=== PATIENT | female | born 1995 | race Caucasian/White ===

== ENCOUNTER 2020-07-07 22:13 | Inpatient (IN) | payer BC ==
[~2020-07-07] VITALS: Ht 160 cm; Wt 96.4 kg
--- NOTE | 2020-07-07 22:15 | NUR ---
Pt arrived on unit via wheelchair escorted by boyfriend and with complaints of contractions since 4pm wosening to every 5 minutes over the last couple hours. Pt denies leaking of fluid or vaginal bleeding and reports normal movement. EFM and toco monitors started. Vital signs WNL. SVE by this RN -/2. Plan of care for labor assessment reviewed.
[2020-07-07 22:20] VITALS: BP 110/65; PULSE 76
[2020-07-07] MEDS ORDERED: PRENATAL (22:26)
[2020-07-07] MEDS ORDERED: NATURAL IRON65 MG (22:26)
--- NOTE | 2020-07-07 23:30 | NUR ---
Spoke with Dr. Garrido for an update on pt's status with FHR tracing, ctx pattern and SVE reviewed. Orders for labor admission received. Plan of care reviewed with pt and boyfriend at the bedside. Both verbalized an understanding, agreed with the plan and states no questions or concerns at this time.
[2020-07-08] VITALS (45 sets, daily range): BP systolic 83–146; BP diastolic 52–85; PULSE 64–106; TEMP 97.4–98.9
--- NOTE | 2020-07-08 00:20 | NUR ---
Pt off EFM to ambulate.
[2020-07-08 00:44] LABS: BASO % 0.1 % (0.0-2.0); EOS % 0.3 % (0-4.0); GRAN # 9.9 (1.4-6.5); GRAN % 73.5 % (42.2-75.2); HEMATOCRIT 37.4 % (37.0-47.0); HEMOGLOBIN 12.8 g/dl (12.5-16.0); LYMPH # 2.5 (1.2-3.4); LYMPH % 18.6 % (20.0-51.0); MEAN CELL VOLUME 94 fl (80.0-100.0); MEAN CORPUSCULAR HEMOGLOBIN 32 pg (27.0-31.0); MEAN CORPUSCULAR HGB CONC 34 g/dl (33.0-37.0); MEAN PLATELET VOLUME 8.4 fl (7.4-10.4); MONO # 0.9 (0.1-0.6); MONO % 6.9 % (1.7-9.3); PLATELET COUNT 228 K/mm3 (130-400); RED BLOOD COUNT 3.98 M/mm3 (4.10-5.30); REDCELL DISTRIBUTION WIDTH-CV 12.7 % (11.5-14.5)
[2020-07-08 00:54] LABS: TRICYCLIC ANTIDEPRESS URINE NEGATIVE
--- NOTE | 2020-07-08 02:33 | NUR ---
0233- ELLIS Maria at the bedside for epidural placement. Time out done. Pt sitting on the edge of the bed. 0236- SPO2 monitor started. EFM tracing maternal HR as correlates with SPO2 monitor. 0245- Test dose done per Candace. See anesthesia records for details. 0251- Assisted pt back to supine with left wedge position.
--- NOTE | 2020-07-08 04:00 | NUR ---
Difficult tracing contractions, toco adjusted.
--- NOTE | 2020-07-08 05:15 | NUR ---
Difficult tracing contractions, toco adjusted.
--- NOTE | 2020-07-08 05:45 | NUR ---
Difficult tracing contractions, toco adjusted.
--- NOTE | 2020-07-08 07:27 | NUR ---
0630 EPHEDRINE 10 MG IV GIVEN FOR BP OF 83/54
--- NOTE | 2020-07-08 13:09 | NUR ---
1150 PATIENT VERY UNCOMFORTBALE.SVE /0. DR CALLED TO COME FOR DELIVERY. 1200 DR AYALA AT BEDSIDE WILL PUSH WITH EACH CONTRACTION. 1208 BABY BOY BORN VIA BY DR AYALA. CORD CLAMPED AND CUT AND TO MOMS CHEST SKIN TO SKIN. 1210 PLACENTA DELIVERED. PITOCIN STARTED AT 333/HR PER PTOTOCOL. FUNDUS FIRM AND BLEEDING MODERATE. 2 SMALL LABIAL LACERATIONS REPAIRED BY AT THIS TIME
[2020-07-09 00:34] VITALS: BP 96/51; PULSE 71; TEMP 98.2
[2020-07-09 04:14] VITALS: BP 94/53; PULSE 74; TEMP 98.1
[2020-07-09] MEDS ORDERED: MOTRIN 800800 MG/TAB PO (07:27)
[2020-07-09] MEDS ORDERED: PERCOCET 325 MG1 TA2 PO (07:28)
[2020-07-09 07:55] VITALS: BP 93/56; PULSE 99; TEMP 98.2
--- NOTE | 2020-07-09 10:03 | NUR ---
Initial visit; Parents thanked for offering congratulations for the of their son. Chief Inspector thanked family for choosing [place] and offered God's blessings to their family.
[2020-07-09 11:10] VITALS: BP 116/59; PULSE 74; TEMP 98
--- NOTE | 2020-07-09 11:54 | NUR ---
LORRIE responded to consult. The patient admitted to marijuana use during . Her UDS came back negative for cannabinoids. LORRIE met with the patient and the father of baby, Bayron Boyce. The patient lives in [place] with Bayron. She states that Bayron's family lives here in town. She states that she has cousins, aunts, and uncles that live here. She states that she works at [employer] and worked there throughtout . Bayron works at [employer]. The patient reports that she has a carseat, applied for WIC, and all supplies for baby. LORRIE then addresed the patient's marijuana use. The patient reports that she last used two weeks ago. She states that she used before this as well to help with nausea and to be able to eat during . She states that she would take edibles. She denies any other drug use. The patient reports that she does not have any concerns with smoking or taking edibles when she returns home with baby. The patient and Bayron did not have any questions or concerns for LORRIE about bringing baby home. LORRIE updated OB staff on the above information. The baby's cord blood is pending. LORRIE made a CPS report. Intake ID#[id number].
[2020-07-09 17:17] VITALS: BP 110/62; PULSE 75; TEMP 98
[2020-07-09 19:19] VITALS: BP 110/64; PULSE 74; TEMP 98.4
[2020-07-10 07:55] VITALS: BP 108/62; PULSE 78; TEMP 98.1
== END 2020-07-10 10:25 | disposition home or self-care (01) | DRG 807 ==
LOC: LDRO 22:13 → LDR 22:50 → LDRO 23:38 → LDR 23:39 → OB 23:39
PROVIDERS: Student in an Organized Health Care Education/Training Program; ADMIT Obstetrics & Gynecology
PROC: 10E0XZZ Delivery of Products of Conception, External Approach (ICD-10-PCS; principal; 2020-07-08)
PROC: 10907ZC Drainage of Amniotic Fluid, Therapeutic from Products of Conception, Via Natural or Artificial Opening (ICD-10-PCS; 2020-07-08)
PROC: 0UQMXZZ Repair Vulva, External Approach (ICD-10-PCS; 2020-07-08)
DX: O48.0 Post-term pregnancy (principal); Z37.0 Single live birth; O99.824 Streptococcus B carrier state complicating childbirth; O70.0 First degree perineal laceration during delivery; Z3A.40 40 weeks gestation of pregnancy
CPT/HCPCS: J2540; J2590; J7120

== ENCOUNTER 2022-02-24 11:16 | Outpatient (CLI) | payer OTHER ==
[~2022-02-24] VITALS: Ht 157.5 cm; Wt 102.7 kg
[~2022-02-24 11:16] MED LIST: MOTRIN 800800 MG/TAB PO; NATURAL IRON65 MG; PERCOCET 325 MG1 TA2 PO; PRENATAL
--- NOTE | 2022-02-24 11:25 | NUR ---
pt ambulatory onto unit with support person to LR2. pt changed into clean gown. FHR monitor/toco applied. vital signs wnl. Pt denies any vaginal bleeding, decreaesd movement or regular contractions. SVE /-3. Amniotests negative x2.
[2022-02-24] MEDS ORDERED: ASPIRIN 81M81 MG/TA2 PO (11:36)
[2022-02-24] MEDS ORDERED: PRILOSEC10 MG PO (11:36)
[2022-02-24 12:00] VITALS: BP 117/76; PULSE 93; TEMP 97.5
== END 2022-02-24 12:10 | disposition home or self-care (01) ==
LOC: LDRO 11:16
DX: Z34.93 Encounter for supervision of normal pregnancy, unspecified, third trimester (principal); Z3A.36 36 weeks gestation of pregnancy

== ENCOUNTER 2022-03-17 14:53 | Inpatient (IN) | payer OTHER ==
[2022-03-17] VITALS (30 sets, daily range): BP systolic 107–145; BP diastolic 55–85; PULSE 74–115; TEMP 98.1–98.6
[~2022-03-17] VITALS: Ht 157.5 cm; Wt 104.5 kg
[~2022-03-17 14:53] MED LIST changes: +ASPIRIN 81M81 MG/TA2 PO; +PRILOSEC10 MG PO
[2022-03-17 15:38] LABS: BASO % 0.1 % (0.0-2.0); EOS % 0.2 % (0.0-4.0); GRAN # 12.2 K/mm3 (1.4-6.5); GRAN % 80.1 % (42.2-75.2); HEMATOCRIT 39.2 % (37.0-47.0); HEMOGLOBIN 13.5 g/dl (12.5-16.0); LYMPH % 12.9 % (20.0-51.0); MEAN CELL VOLUME 94 fl (80.0-100.0); MEAN CORPUSCULAR HEMOGLOBIN 33 pg (27-31); MEAN CORPUSCULAR HGB CONC 34 g/dl (33.0-37.0); MEAN PLATELET VOLUME 8.9 fl (7.4-10.4); MONO % 6.4 % (1.7-9.3); PLATELET COUNT 246 K/mm3 (130-400); RED BLOOD COUNT 4.16 M/mm3 (4.10-5.30); REDCELL DISTRIBUTION WIDTH-CV 12.6 % (11.5-14.5)
--- NOTE | 2022-03-17 16:15 | NUR ---
1558- Pt up to void and provide urine sample. 1603- Pt back to bed, sitting on side of bed for epidural placement. EFM and TOCO plugged in but not tracing well due to maternal positioned. Adjusted by this RN. O2 sat monitor on and tracing maternal HR. ELLIS Brooks at bedside. 1608- Single shot by DIVISION SUPERINTENDENT, see anesthesia record. 1613- O2 sat monitor off. Pt assisted to semi-fowlers with WL. EFM and TOCO adjusted until tracing. Pt tolerated well. This RN remains at bedside monitoring VS for 20mins.
[2022-03-17 16:48] LABS: TRICYCLIC ANTIDEPRESS URINE NEGATIVE
--- NOTE | 2022-03-17 17:15 | NUR ---
1653- Pt repositioned for vargas replacement. SVE /-2. Pt assisted to RL with LLS. FHR not tracing well, adjusted multiple times and additional strap placed. 1710- L leg taken out of stirrup, FHR found and tracing well. UC adjusted, no contractions noted per monitor.
--- NOTE | 2022-03-17 17:23 | NUR ---
1453 Patient here for compliants of contractions since Dr appointment yesterday. Contractions getting stronger. EFM on contractions every 3 min, palpate strong. Fht 125 Baby very active. SVE /-1. DR Painter updated on all above information. Orders to admit for labor. Assessment completed. Iv started in left hand. 3449 report given to Patricia Chen to assume care at this time.
--- NOTE | 2022-03-17 18:55 | NUR ---
1854-DR MORFIN REVIEWS STRIP. TO BEDSIDE. SVE BY DR MORFIN . STATES THERE WAS GOOD CHANGE, BUT TO START PITOCIN TO GET THINGS GOING FASTER. PT IS AGREEABLE. 1899- PT POSITIONED IN RIGHT TILT WITH PEANUT BALL. MONITORS ADJUSTED. PT HAS EPISODE OF VOMITTING, REQUESTS SOMETHING FOR NAUSEA. 1914- ZOFRAN GIVEN FOR NAUSEA. PITOCIN STARTED AT 2MUNITS ORDERED. SECOND DOSE OF PEN G INFUSING ORDERED. PT REPORTS FEELING BETTER AT THIS TIME. 1934- PT TURNED TO LEFT TILT WITH PEANUT BALL, MONITORS ADJUSTED. 1944- PITOCIN INCREASED TO 4MUNITS ORDERED. PT REPORTS SOME MILD RECTAL PRESSURE. ENCOURAGED TO USE HER EPIDURAL BUTTON IF NEEDED FOR PAIN. MONITORS ADJUSTED. 2004- DR MORFIN AT BEDSIDE, SVE BY DR MORFIN ANTERIOR LIP/100/+1. PT POSITIONED IN RIGHT TILT WITH PEANUT BALL, MONITORS ADJUSTED. DR MORFIN STATES SHE WILL BE BACK IN 30 MINUTES TO PUSH. 2024- DR MORFIN AT BEDSIDE. SVE BY DR MORFIN COMPLETE AND +2. 2029- GARZA CATHETER REMOVED BY RN. PT POSITIONED IN FOOTPLATES BY DR MORFIN. PT BEGINS COACHED PUSHING WITH DR MORFIN. MONITORS ADJUSTED. 2033- DR MORFIN COACHES PUSHING AND MASSAGES PERINEUM DURING CONTRACTIONS. SPONTANEOUS VAGINAL DELIVERY OF VIABLE FEMALE WITH NUCHAL CORD X1 WHICH IS REDUCED BY DR MORFIN AFTER SHE STATES "TIGHT NUCHAL X1." BABY TO MOTHER'S ABDOMEN AND CARE OF NURSERY STAFF. TERMINAL MECONIUM NOTED AT DELIVERY. [id number]- DR MORFIN APPLYING TRACTION TO CORD FOR DELIVERY OF PLACENTA. 2036- SPONTANEOUS DELIVERY OF PLACENTA, EXAMINED BY DR MORFIN. REPAIR OF RIGHT LABIAL LACERATION IN PROGRESS. 2039- REPAIR COMPLETE. COUNTS CORRECT. PERICARE PROVIDED. ICEPACK TO PERINEUM. FEET DOWN FROM FOOTPLATES AND RECOVERY STARTED.
--- NOTE | 2022-03-17 23:00 | NUR ---
2300- PT ABLE TO ELEVATE LEGS OFF BED. IV TO SALINE LOCK. PT ASSISTED TO SIT ON EDGE OF BED. SHE DENIES FEELING LIGHT HEADED OR DIZZY. EPIDURAL CATHETER REMOVED CHARTED. PT ASSISTED TO AMBULATE TO BATHROOM. PT ABLE TO VOID 700ML WITHOUT DIFFICULTY. PT PERFORMS PERICARE. NORMAL LOCHIA DISCUSSED AND QUESTIONS ANSWERED. CLEAN GOWN, PAD, AND PANTIES PROVIDED. 5- PT AMBULATES TO ROOM 208. BELONGINGS AND BABY WITH PT. PT ORIENTED TO ROOM AND CALL LIGHTS. PLAN OF CARE DISCUSSED INCLUDING NEXT VITAL SIGNS. PT VERBALIZES UNDERSTANDING AND DENIES FURTHER NEEDS AT THIS TIME.
[2022-03-18] VITALS: BP 118/70; PULSE 83; TEMP 98.4
--- NOTE | 2022-03-18 02:02 | NUR ---
REPORT RECEIVED FROM JOSE MORRIS. PATIENT IN ROOM, ASLEEP.
[2022-03-18 03:30] VITALS: BP 107/60; PULSE 70; TEMP 97.9
[2022-03-18 07:48] VITALS: BP 123/74; PULSE 67; TEMP 97.9
--- NOTE | 2022-03-18 11:23 | NUR ---
Initial visit; Parents thanked Loan Funder for offering congratulations and God's blessings for the of their Daughter. Loan Funder thanked family for choosing [place].
[2022-03-18 16:19] VITALS: BP 112/67; PULSE 74; TEMP 97.8
[2022-03-18 20:10] VITALS: BP 112/78; PULSE 74; TEMP 98
[2022-03-19] MEDS ORDERED: IBU800 M1 PO (08:10)
[2022-03-19] MEDS ORDERED: PERCOCET 325 MG1 TA2 PO (08:10)
[2022-03-19 09:30] VITALS: BP 119/76; PULSE 71; TEMP 98.1
--- NOTE | 2022-03-19 10:42 | NUR ---
1030 BED PLACEMENT COORDINATOR HERE TO VISIT WITH PARENTS AND OFFER SERVICES AND SEE NO CONCERNS.
--- NOTE | 2022-03-23 15:26 | NUR ---
Patient UDS came back positive for THC. APS report filed. C#[id number]
== END 2022-03-19 12:00 | disposition home or self-care (01) | DRG 807 ==
LOC: LDRO 14:53 → LDR 15:00 → OB 15:00 → EDSTATUS 15:30 → OB 23:15
PROVIDERS: Obstetrics & Gynecology; ADMIT Obstetrics & Gynecology
PROC: 10E0XZZ Delivery of Products of Conception, External Approach (ICD-10-PCS; principal; 2022-03-17)
PROC: 10907ZC Drainage of Amniotic Fluid, Therapeutic from Products of Conception, Via Natural or Artificial Opening (ICD-10-PCS; 2022-03-17)
PROC: 0UQMXZZ Repair Vulva, External Approach (ICD-10-PCS; 2022-03-17)
DX: O99.824 Streptococcus B carrier state complicating childbirth (principal); Z37.0 Single live birth; O69.81X0 Labor and delivery complicated by cord around neck, without compression, not applicable or unspecified; O76 Abnormality in fetal heart rate and rhythm complicating labor and delivery; O70.0 First degree perineal laceration during delivery; O32.4XX0 Maternal care for high head at term, not applicable or unspecified; O71.82 Other specified trauma to perineum and vulva; O99.324 Drug use complicating childbirth; F12.90 Cannabis use, unspecified, uncomplicated; Z3A.39 39 weeks gestation of pregnancy
CPT/HCPCS: J2405; J2540; J2590; J7120